=== PATIENT | male | born 1980 | race African-American/Black ===

== ENCOUNTER 2018-11-23 23:34 | Emergency (ER) | payer OTHER ==
[~2018-11-23] VITALS: Ht 182.9 cm; Wt 77.3 kg
[2018-11-23 23:41] VITALS: Ht 182.9 cm; Wt 77.3 kg
[2018-11-23] MEDS ORDERED: SOD CHLORIDE 0.9% 1,000 ML IV STA (23:58)
[2018-11-23] MEDS ORDERED: ONDANSETRON 4 MG INJ IV STA (23:58)
[2018-11-23] MEDS ORDERED: KETOROLAC 15 MG INJ IV STA (23:58)
--- NOTE | 2018-11-24 00:25 | ERD ---
ER Documentation Chief Complaint Chief Complaint [facility] & [employer] from detention,medical clearance,c/o abd sharp pain HPI 38-year-old man brought in by [employer] officers for medical clearance prior to going to halfway. Patient has complaints of diffuse crampy abdominal pain and some nausea, belching, and reflux. States abdominal pain is mostly localized to the epigastrium. He denies fevers or chills, no hematemesis, no blood per rectum or melena, no complaints of chest pain or shortness of breath ROS All systems reviewed and are negative except as per history of present illness. Medications Home Meds Active Scripts Naproxen* (Naprosyn*) 500 Mg Tablet, 500 MG PO BID PRN for PAIN AND/OR INFLAMMATION, #30 TAB Prov:PURVI REED MD 11/24/18 Famotidine* (Pepcid*) 20 Mg Tablet, 20 MG PO BID, #20 TAB Prov:PURVI REED MD 11/24/18 Ondansetron Hcl* (Zofran*) 4 Mg Tablet, 4 MG PO Q8H PRN for NAUSEA AND/OR VOMITING, #30 TAB Prov:PURVI REED MD 11/24/18 Allergies Allergies: Coded Allergies: No Known Allergy (Unverified , 11/23/18) PMhx/Soc Medical and Surgical Hx: pt denies Medical Hx, pt denies Surgical Hx Smoking Status: Unknown if ever smoked Physical Exam Vitals Vital Signs Date Temp Pulse Resp B/P (MAP) Pulse Ox O2 O2 Flow FiO2 Time Delivery Rate 11/24/18 97.9 79 19 151/102 98 Room Air 03:15 (118) 11/23/18 97.9 86 22 156/106 98 Room Air 23:50 (123) 11/23/18 97.5 103 19 155/124 98 23:41 (134) Physical Exam GENERAL: Well-developed, well-nourished, well-hydrated, in no apparent distress, looks nontoxic in appearance HEENT: Moist mucous membranes, pink conjunctiva, no cervical spine tenderness or step-off deformities, no goiter, no jaundice or icterus, extraocular movements intact without pain. No submandibular induration, and no pharyngeal erythema CARDIAC: Regular rate and rhythm, no murmurs rubs or gallops LUNGS: Clear bilaterally no wheezing crackles or stridor ABDOMEN: Soft nontender, no guarding, no rigidity, no rebound, no psoas sign no obturator sign. SKIN: Warm and dry to touch, no abrasions, contusions, or hematomas, no lacerations, no ecchymosis, no target lesions, and without ulcers EXTREMITIES: No clubbing cyanosis or edema, calves are bilaterally symmetrical, no Homans sign, no popliteal cord sign. Distal pulses equal and bilateral PSYCH: Normal affect without agitation or irritability Result Diagram: 11/24/1811011/24/18 011 Results 24 hrs Laboratory Tests Test 11/24/18 01:11 White Blood Count 13.2 10^3/ul Red Blood Count 6.30 10^6/ul Hemoglobin 17.0 g/dl Hematocrit 51.7 % Mean Corpuscular Volume 82.1 fl Mean Corpuscular Hemoglobin 27.0 pg Mean Corpuscular Hemoglobin Concent 32.9 g/dl Red Cell Distribution Width 13.8 % Platelet Count 326 10^3/UL Mean Platelet Volume 8.7 fl Immature Granulocytes % 0.500 % Neutrophils % % Segmented Neutrophils % (Manual) 86 % Band Neutrophils % (Manual) 5 % Lymphocytes % % Lymphocytes % (Manual) 4 % Monocytes % % Monocytes % (Manual) 5 % Eosinophils % % Basophils % % Nucleated Red Blood Cells % 0.0 /100WBC Immature Granulocytes # 0.060 10^3/ul Neutrophils # 10^3/ul Neutrophils # (Manual) 11.4 10^3/ul Band Neutrophils # 0.6 10^3/ul Lymphocytes (Manual) 0.5 10^3/ul Lymphocytes # 10^3/ul Monocytes # 10^3/ul Monocytes # (Manual) 0.6 10^3/ul Eosinophils # 10^3/ul Basophils # 10^3/ul Nucleated Red Blood Cells # 10^3/ul Platelet Estimate NORMAL Polychromasia 1+ Anisocytosis 1+ Microcytosis 1+ Sodium Level 144 mmol/L Potassium Level 3.8 mmol/L Chloride Level 101 mmol/L Carbon Dioxide Level 29 mmol/L Anion Gap 14 Blood Urea Nitrogen 12 mg/dl Creatinine 1.00 mg/dl Est Glomerular Filtrat Rate mL/min > 60 mL/min Glucose Level 110 mg/dl Calcium Level 10.0 mg/dl Total Bilirubin 0.7 mg/dl Direct Bilirubin 0.00 mg/dl Indirect Bilirubin 0.7 mg/dl Aspartate Amino Transf (AST/SGOT) 20 IU/L Alanine Aminotransferase (ALT/SGPT) 22 IU/L Alkaline Phosphatase 100 IU/L Troponin I < 0.012 ng/ml Total Protein 9.7 g/dl Albumin 5.1 g/dl Globulin 4.60 g/dl Albumin/Globulin Ratio 1.10 Lipase 28 U/L Current Medications Medications Dose Sig/Faiza Start Time Status Last (Trade) Ordered Route PRN Stop Time Admin Dose Reason Admin Sodium 1,000 ml @ Q1H STAT 11/23/18 DC 11/24/18 Chloride 1,000 mls/hr IV 23:58 11/24/18 01:27 00:57 Ondansetron 4 mg ONCE STAT 11/23/18 DC 11/24/18 HCl (Zofran IV 23:58 01:27 Inj) 11/23/18 23:59 Ketorolac 15 mg ONCE STAT 11/23/18 DC 11/24/18 Tromethamine IV 23:58 01:27 (Toradol) 11/23/18 23:59 Famotidine 20 mg ONCE STAT 11/24/18 DC 11/24/18 (Pepcid) PO 02:15 11/24/18 02:26 02:19 40 ml ONCE STAT 11/24/18 DC 11/24/18 Miscellaneous PO 02:15 11/24/18 02:26 Medication 02:19 (Gi Cocktail (2)) Belladonna/ 2 tab ONCE STAT 11/24/18 DC 11/24/18 Phenobarbital PO 02:15 11/24/18 02:26 () 02:19 Procedures/MDM IV line was established patient was placed on rn cardiac rehab rhythm strip revealed a sinus rhythm at about 70 bpm with upright P and T waves. Patient was afebrile EKG performed, read by me revealed a normal sinus rhythm at 71 bpm, normal axis, narrow QRS complex, no concerning ST elevations or depressions noted I administered 1 L normal saline IV, Toradol 15 mg IV, Zofran 4 mg IV, GI cocktail p.o., famotidine p.o. CBC and electrolytes are normal, liver function tests were normal, troponin was negative Differential diagnoses considered, included but not limited to acute coronary syndrome, pulmonary embolism, aortic dissection, abdominal aortic aneurysm, sepsis, stroke, meningitis, encephalitis, pneumonia, appendicitis, cholecystitis, bowel obstruction, pyelonephritis, nephrolithiasis, cystitis, as well as metabolic, hematologic, and electrolyte abnormalities. As well as abscess, cellulitis, fractures, and dislocations. Patient feels much better at this time, and vital signs are normal, symptoms have improved. I did give strict instructions to return to the ED if symptoms continue or worsen, patient will otherwise follow-up with primary care physician. Patient understood instructions and agreed to plan. Disclaimer: Inadvertent spelling and grammatical errors are likely due to EHR/dictation software use and do not reflect on the overall quality of patient care. Also, please note that the electronic time recorded on this note does not necessarily reflect the actual time of the patient encounter. Departure Diagnosis: Primary Impression: Abdominal pain Abdominal location: generalized Qualified Codes: R10.84 - Generalized abdominal pain Additional Impression: Encounter for medical clearance for patient hold Condition: PURVI Johnston MD Nov 24, 2018 00:25
[2018-11-24] MEDS ORDERED: FAMOTIDINE 20 MG TAB PO STA (02:15)
[2018-11-24] MEDS ORDERED: LIDOCAINE/MYLANTA 40 ML BTL PO STA (02:15)
[2018-11-24] MEDS ORDERED: BELLADONNA/PHENOBARBITAL TAB PO STA (02:15)
[2018-11-24] MEDS ORDERED: NAPR-985 PO (03:02)
[2018-11-24] MEDS ORDERED: FAMO-96 PO (03:02)
[2018-11-24] MEDS ORDERED: ONDA4TAB8 PO (03:02)
[2018-11-24 03:15] VITALS: BP 151/102; PULSE 79; RESP 19
== END 2018-11-24 03:24 ==
LOC: E/R 23:34
DX: R10.84 Generalized abdominal pain (principal); R11.0 Nausea; Z00.00 Encounter for general adult medical examination without abnormal findings
CPT/HCPCS: 36415; 80053; 83690; 84484; 85025; 93005; 96374; 96375; 99284; J1885; J2405; J7030